=== PATIENT | female | born 1985 | race Two or more races ===

== ENCOUNTER → 2024-09-22 | Outpatient (CLI) | payer BC, SELFPAY ==
--- NOTE | 2024-09-22 11:30 | XR_ITS ---
Examination: Screening digital mammography, bilateral Computer aided detection 3-D breast Tomosynthesis, bilateral Date and time of exam: September 22, 2024 1116 hours Comparison February 16, 2021 Indication: Screening Technique: Nonmagnified MLO, CC views of the breasts to been obtained, reconstructed from 3-D Tomosynthesis images. R2 computer aided detection program utilized for evaluation of suspicious masses and/or abnormal calcifications. 3-D Tomosynthesis images obtained. Findings: Scattered areas of fibroglandular density. Benign calcifications. No interval suspicious masses Impression: BI-RADS category II: Benign Findings. Recommend 1 year follow-up mammogram.
== END | disposition home or self-care (01) ==
LOC: CDIM 11:09
PROVIDERS: Referring Provider Physician Assistant; Visit Provider Physician Assistant
DX: Z12.31 Encounter for screening mammogram for malignant neoplasm of breast (principal); R92.323 Mammographic fibroglandular density, bilateral breasts; R92.1 Mammographic calcification found on diagnostic imaging of breast
CPT/HCPCS: 77063; 77067

== ENCOUNTER 2025-01-02 17:50 | Emergency (ER) | payer BC, SELFPAY ==
[2025-01-02 17:53] VITALS: BP 166/91; PULSE 116; RESP 19; TEMP 36.6; O2SAT 100; BMI 27.4
[2025-01-02 17:58] VITALS: PULSE 121; RESP 22; O2SAT 99
--- NOTE | 2025-01-02 18:11 | EKG_ITS ---
[facility] Test Date: 2025-01-02 Pat Name: ANDERSON GOMEZ Department: Room: - Gender: Female [employer]: : 1985 Requested By: Ruben Ya Order Number: [id number] Reading MD: Ruben Ya Measurements Intervals [place] Rate: 108 P: 57 MD: 130 QRS: 36 QRSD: 82 T: 45 QT: 360 QTc: 484 Interpretive Statements SINUS TACHYCARDIA POSSIBLE LEFT ATRIAL ENLARGEMENT [-0.1mV P-WAVE IN V1/V2] ABNORMAL RHYTHM ECG No previous ECG available for comparison /store/S0/[id number]/ecg/[id number].pdf
--- NOTE | 2025-01-02 18:11 | EDNOTE_ITS ---
ED Anxiety RME/HPI General Chief Complaint: Anxiety Stated Complaint: ANXIETY Time Seen by Provider: 01/02/25 18:15 Arrival date/time: 01/02/25 17:50 39-year-old female patient came in for evaluation regarding anxiety-like symptoms. Onset of symptoms earlier today, as sudden onset of bilateral arms jittery, carpopedal spasm bilateral upper extremity, facial numbness, hyperventilation, palpitation, not feeling well, and crying. Patient denies any chest pain. Denies any headache patient is ambulatory with help. Denies any lower extremity weakness. Denies any upper extremity weakness. Denies any head trauma or fall. No medication was taken prior to ER visit. Related Data Home Medications ?Medication ?Instructions ?Recorded ?Confirmed ferrous sulfate 325 mg (65 mg 325 mg PO QDAY 01/29/18 iron) tablet (Feosol) Previous Rx's ?Medication ?Instructions ?Recorded lorazepam 0.5 mg tablet (Ativan) 0.5 mg PO BID PRN anx iety #10 tabs 01/02/25 Allergies Allergy/AdvReac Type Severity Reaction Status Date / Time Sulfa (Sulfonamide Allergy Intermediate Rash Verified 01/29/18 22:13 Antibiotics) Review of Systems Review of Systems Narrative Review of Systems: Review of system reviewed and within normal limits except mentioned in HPI ED Exam Narrative Physical exam: VITAL SIGNS: Reviewed. GENERAL APPEARANCE: Alert and interactive, follows commands, no acute distress, anxious HEAD AND FACE: Non-traumatic. ENT: PERRL, pink conjunctivitis, eyelid no trauma, Mucous membrane moist. NECK: Supple, nontender, no nuchal rigidity. CHEST: No tenderness, no crepitus, no paradoxical movement, no retractions. LUNGS: Clear, well ventilated, symmetric, no rales, no wheezing, no ronchi, no stridor, good breath sounds bilaterally. HEART: Regular rate, regular rhythm, no murmur, no gallops. ABDOMEN: Soft, positive bowel sounds, nondistended, no guarding, nontender, no rebound, no masses, RECTAL: Deferred. GENITAL: Deferred. NEUROLOGICAL: Gross motor function intact sensory function intact, Appropriate for age. MUSCULOSKELETAL: low back nontender, full range of motion. EXTREMITIES: Nontender, full range of motion. SKIN: Color pink, dry, no rash, no lacerations, no abrasions, no contusions. LYMPHATICS: Deferred. Course Quality Measures none Orders Category Date Time Status EKG (ED ONLY) *Do not use* NOW Care 01/02/25 18:11 Active EKG (ED Only) Stat Exams 01/02/25 18:11 Ordered Diazepam [Valium] Med 01/02/25 18:10 Once 5 mg PO X1 ONE Vital Signs Vital signs: Vital Signs Temperature 97.8 F 01/02/25 17:53 Pulse Rate 116 H 01/02/25 17:53 Respiratory Rate 19 01/02/25 17:53 Blood Pressure 166/91 H 01/02/25 17:53 Pulse Oximetry (%) 100 01/02/25 17:53 Oxygen Delivery Method Room Air 01/02/25 17:53 Anxiety MDM Narrative MDM Narrative: 01/02/25 17:50 39-year-old female patient came in for evaluation regarding anxiety-like symptoms. Onset of symptoms earlier today, as sudden onset of bilateral arms jittery, carpopedal spasm bilateral upper extremity, facial numbness, hyperventilation, palpitation, not feeling well, and crying. Patient denies any chest pain. Denies any headache patient is ambulatory with help. Denies any lower extremity weakness. Denies any upper extremity weakness. Denies any head trauma or fall. No medication was taken prior to ER visit. EKG showed sinus tachycardia, ventricular rate of 108 bpm, no ST segment elevation or depression noted. Patient was given volume, and complete resolution of symptoms noted prior to discharge. Stable for discharge home Patient data External records reviewed:: None Clinical information provided by:: patient Social determinants that could affect healthcare access:: none Patient has the following chronic illnesses:: None How is presenting disease/condition affected by chronic disease/condition?: no chronic disease Evaluation data The following diagnostics were reviewed and interpreted by me:: EKG tracing(s) Lab and/or radiology exams considered but not ordered:: None Interpretation Summary: See above Medications / Prescriptions Medications or Prescriptions considered but not ordered:: None Medication administrations:: None Consultations Consultation(s) initiated? (list below): No Diagnosis Differential diagnosis anxiety: hyperventilation and panic disorder Most likely diagnosis given after review of the tests above:: Acute anxiety Admission Indicated Admission indicated?: not indicated Admission Request Was there a request for admission?: No Disposition Plan Disposition Plan: Discharge Discharge Attestation Discharge Attestation: The patient and all family members were given an opportunity to ask questions and understood the discharge instructions. Discharge instructions specifically effects, indications for sooner follow up or return to the emergency department, and the expected course of current diagnosis. Patient condition: Stable Discharge Plan Plan Patient Disposition: HOME (Self Care) Discharge Disposition comment: stable Prescriptions/Referrals Prescriptions/Med Rec: New lorazepam [Ativan] 0.5 mg tablet 0.5 mg PO BID PRN (Reason: anxiety) Qty: 10 0RF No Action ferrous sulfate [Feosol] 325 mg (65 mg iron) tablet 325 mg PO QDAY Referrals: Louis Osorio MD [Primary Care Provider, Family Practice] - In 1 week Problem List Clinical Impression: Acute anxiety Patient/Caregiver Discharge Instructions Discharge Activity: activity as tolerated Education Materials: ED Anxiety Reaction Additional Instructions: Thank you for the opportunity for serving you today. You are stable for discharged . You are advised to: Follow-up with your PCP in 1 to 2 days Return to ED for worsening of symptoms Increase oral fluids Take medication as prescribed Print Language: Malawian Stand Alone Forms: Danna Award Info., Patient Portal Info Letter PA/POLICY CANCELLATION CLERK Supervising Physician PA/POLICY CANCELLATION CLERK Supervising Physician: MD Eris
[2025-01-02] MEDS: DIAZEPAM 5 MG TABLET PO (18:24)
[2025-01-02 20:52] VITALS: BP 156/97; PULSE 100; RESP 18; TEMP 37.2; O2SAT 98
[2025-01-02] MEDS: ACETAMINOPHEN 500 MG TABLET 1000 MG PO (21:16)
== END 2025-01-02 21:19 | disposition home or self-care (01) ==
PROVIDERS: Emergency Provider Emergency Medicine; PCP Family Medicine
DX: F41.9 Anxiety disorder, unspecified (principal)
CPT/HCPCS: 93005; 99282; A9270